=== PATIENT | female | born 1955 | race Two or more races ===

== ENCOUNTER 2024-12-31 11:02 | Inpatient (IN) | payer MEDICARE, BC, SELFPAY ==
[2024-12-31 11:03] VITALS: BMI 38.7
[2024-12-31 11:35] VITALS: BP 147/93; PULSE 100; RESP 18; TEMP 36.9; O2SAT 97
--- NOTE | 2024-12-31 11:40 | PD.EDRME ---
Rapid Medical Screening Exam RME Arrival date/time: 12/31/24 11:02 69-year-old female with a history of hypertension presents to the emergency room with a chief complaint of weakness, black tarry stools x 4 days I have greeted and performed a focused initial assessment of this patient. A comprehensive ED assessment and evaluation of the patient, analysis of all test results, and completion of the medical decision making process will be conducted by additional ED providers. Chief Complaint: GI Bleed Time Seen by Provider: 12/31/24 11:28 Vital signs: Vital Signs Temperature 98.5 F 12/31/24 11:35 Pulse Rate 100 12/31/24 11:35 Respiratory Rate 18 12/31/24 11:35 Blood Pressure 147/93 H 12/31/24 11:35 Pulse Oximetry (%) 97 12/31/24 11:35 Oxygen Delivery Method Room Air 12/31/24 11:35 Vital signs reviewed by provider: Yes
[2024-12-31 12:23] LABS: Basophils # (Auto) 0.0 Thou/mm3 (0.0-0.2); Basophils % (Auto) 1 % (0-2.5); Eosinophils # (Auto) 0.1 Thou/mm3 (0.0-0.5); Eosinophils % (Auto) 2 % (0-10); Hematocrit 31.2 % (36.0-46.0); Hemoglobin 10.8 g/dL (12.0-16.0); Immature Granulocytes Auto 0.10 Thou/mm3 (0.00-0.00); Lymphocytes # (Auto) 1.2 Thou/mm3 (1.0-4.8); Lymphocytes % (Auto) 24 % (10-50); Mean Corpuscular HGB Conc 34.6 g/dl (31.0-37.0); Mean Corpuscular Hemoglobin 31.0 pg (25.0-35.0); Mean Corpuscular Volume 90 fL (80-100); Monocytes # (Auto) 0.4 Thou/mm3 (0.0-0.8); Monocytes % (Auto) 8 % (0-12); Neutrophils # (Auto) 3.3 Thou/mm3 (1.8-7.7); Neutrophils % (Auto) 64 % (37-80); Nucleated Red Blood Cell # 0.02 Thou/mm3 (0.00-0.00); Nucleated Red Blood Cell % 0 /100 WBC (0); Platelet Count 228 Thou/mm3 (140-440); RDW Standard Deviation 39.7 fL (36.4-46.3); Red Blood Count 3.48 Miln/mm3 (4.00-5.20); White Blood Count 5.2 Thou/mm3 (3.6-11.0)
[2024-12-31 12:32] LABS: Alanine Aminotransferase 36 U/L (10-49); Albumin, Serum 4.9 gm/dL (3.4-4.8); Albumin/Globulin Ratio 2.1 (1.2-2.2); Alkaline Phosphatase 72 U/L (46-116); Anion Gap 9 (7-16); Aspartate Amino Transferase 45 U/L (0-34); BUN/Creatinine Ratio 9 Ratio (12-20); Bilirubin,Total 0.6 mg/dL (0.3-1.2); Blood Urea Nitrogen 7 mg/dL (9-23); Calcium 9.9 mg/dL (8.3-10.6); Calcium (Corrected) 9.9 mg/dL (8.5-10.1); Carbon Dioxide 26.6 mMol/L (20.0-31.0); Chloride 104 mMol/L (98-107); Creatinine (Component) 0.8 mg/dL (0.6-1.3); Estimated Creatinine Clearance 68.1 mL/min (>60); Globulin 2.3 gm/dL (2.3-3.5); Glucose 107 mg/dL (74-106); Osmolality,Calculated 277 (275-295); Potassium 4.9 mMol/L (3.4-5.1); Sodium 140 mMol/L (136-145); Total Protein 7.2 gm/dL (5.7-8.2); eGFR > 60 See Note
[2024-12-31 13:02] LABS: INR 1.0 (0.9-1.3); Partial Thromboplastin Time 26.1 Seconds (22.0-36.0); Prothrombin Time 10.6 Seconds (9.0-12.2)
--- NOTE | 2024-12-31 13:37 | PD.EDGIBLD ---
ED GI Bleed RME/HPI General Chief complaint: GI Bleed Stated complaint: BLACK STOOL X6DAYS Time Seen by Provider: 12/31/24 11:28 Arrival date/time: 12/31/24 11:02 RME / HPI RME / HPI Narrative: 12/31/24 11:02 69-year-old female with a history of hypertension presents to the emergency room with a chief complaint of weakness, black tarry stools x 4 days I have greeted and performed a focused initial assessment of this patient. A comprehensive ED assessment and evaluation of the patient, analysis of all test results, and completion of the medical decision making process will be conducted by additional ED providers. DR. JEAN MAIN ED EVALUATION 69 year old female with history of hypertension presents to the ED for evaluation of black stool x 6 days. States prior to onset of black stool, she had abdominal pain and body aches. States she took Mylanta and Tylenol and the following day noted the black stool. Now accompanied by feeling slightly globally weak. Denies any bright red or chintan blood. Denies taking any blood thinners, iron supplements, or Pepto Bismol. Denies fever, chills, sweating. Denies chest pain, cough, shortness of breath. Denies nausea, vomiting, diarrhea, constipation. Denies dysuria, urinary frequency and urgency. Related Data Home Medications ?Medication ?Instructions ?Recorded ?Confirmed hydrochlorothiazide 12.5 mg tablet 12.5 mg PO QDAY 05/12/20 05/12/20 lisinopril 20 mg tablet 20 mg PO QDAY 05/12/20 05/12/20 Previous Rx's ?Medication ?Instructions ?Recorded acetaminophen 500 mg tablet 1,000 mg (2 x 500 mg) PO QID PRN 08/01/22 (Tylenol Extra Strength) fever #30 tabs cetirizine 5 mg-pseudoephedrine ER 1 tab PO BID #10 tabs 08/01/22 120 mg tablet,extended release,12hr (Zyrtec-D) Allergies Allergy/AdvReac Type Severity Reaction Status Date / Time No Known Allergies Allergy Verified 12/31/24 11:04 Review of Systems Review of Systems Systems Reviewed: All systems reviewed, normal except as documented Past Medical History Past Medical History CARDIAC: Negative Congestive Heart Failure RESPIRATORY: Negative Chronic Obstructive Pulmonary Disease (COPD) GENITOURINARY: Negative Renal Disease ENDOCRINE: Negative Diabetes Mellitus Type 1 or Diabetes Mellitus Type 2 Surgical History SURGICAL: Positive Abdominal Surgery and Hysterectomy Social History SMOKING STATUS: Never smoker ED Exam Narrative Physical exam: GENERAL APPEARANCE: alert and oriented x 4, well-developed, well-nourished, no acute distress HEENT: Normocephalic, atraumatic; pupils equal, round, reactive to light; EOMI; mucous membranes pink, moist; oropharynx clear NECK: Supple LUNGS: CTABL; no wheezes, no rales, no rhonchi HEART: Regular rate, regular rhythm; normal S1, S2; no murmurs ABDOMEN: non distended; normal BS; soft, no tenderness, no guarding, no rebound; no masses, no organomegaly, no hernia RECTAL: Exam performed in presence of female tailor helper. Stool is black and guaiac strongly positive. BACK: no CVA tenderness EXTREMITIES: atraumatic; no edema NEUROLOGIC: awake; alert and oriented x4; cranial nerves II-XII grossly intact; no focal sensory or motor deficits PSYCHIATRIC: appropriate mood and affect SKIN: warm, dry, normal color; no rashes Course Quality Measures none Orders Category Date Time Status Occult Blood,Stool (Nursing) NOW Care 12/31/24 13:11 Active CBC Stat Lab 12/31/24 12:03 Completed CMP [Comprehensive Metabolic Panel] Stat Lab 12/31/24 12:03 Completed PT [Prothrombin Time with INR] Stat Lab 12/31/24 12:03 Completed PTT [Partial Thromboplastin Time] Stat Lab 12/31/24 12:03 Completed Type and Screen Stat Lab 12/31/24 12:03 Completed Pantoprazole Inj [Protonix Inj] Med 12/31/24 15:30 Pending 40 mg IVP X1 ONE Pantoprazole/Ns 80Mg IV Premix [Protonix/NS 80mg IV Med 12/31/24 15:21 Discontinued Premix] 80 mg in 100 ml IV X1 Vital Signs Vital signs: Vital Signs Temperature 98.5 F 12/31/24 11:35 Pulse Rate 100 12/31/24 11:35 Respiratory Rate 18 12/31/24 11:35 Blood Pressure 147/93 H 12/31/24 11:35 Pulse Oximetry (%) 97 12/31/24 11:35 Oxygen Delivery Method Room Air 12/31/24 11:35 Pulse ox is 97% on room air which is adequate. GI Bleed MDM Narrative MDM Narrative:: IJazlyn am scribing for and in the presence of Dr. Jean. Patient data External records reviewed:: [facility] previous records Clinical information provided by:: patient Social determinants that could affect healthcare access:: none Patient has the following chronic illnesses:: Hypertension How is presenting disease/condition affected by chronic disease/condition?: uneffected by Evaluation data The following diagnostics were reviewed and interpreted by me:: lab results Lab and/or radiology exams considered but not ordered:: None Interpretation Summary: H/H within normal limits, no anemia. Medications / Prescriptions Medications or Prescriptions considered but not ordered:: None Medication administrations:: Medication Administration History Pantoprazole Sodium (Pantoprazole Inj 40 Mg Vial) 40 mg IVP X1 ONE Stop: 12/31/24 15:31 Discontinued Medications Pantoprazole Sodium (Protonix/Ns 80mg Iv Premix) 80 mg in 100 mls @ 400 mls/hr IV X1 ONE Stop: 12/31/24 15:35 See above Consultations Consultation(s) initiated? (list below): Yes Consultation #1 (Physician, Specialty, Details): I spoke with GI Dr. Bermudez. Discussed patients PMHx, HPI, ED course, exam findings, labs results. He agrees to consult. Time: 15:16 Consultation #2 (Physician, Specialty, Details): I spoke with hospitalist team A for admission. Diagnosis GI bleed differential diagnosis: gastritis, Upper gastrointestinal hemorrhage and melena Most likely diagnosis given after review of the tests above:: Melena symptomatic anemia Admission Indicated Admission indicated?: indicated Admission Request Was there a request for admission?: Yes Admission Attestation Admission request attestation: Discussed case with [] from Hospitalist service regarding admission. Discussed patients ED course, exam findings, labs, and radiology results. The Hospitalist [agrees,declines] to accept the patient for admission. Disposition Plan Disposition Plan: Admit Discharge Plan Plan Patient Disposition: Admit Acute Care w/in Hospital Prescriptions/Referrals Prescriptions/Med Rec: No Action lisinopril 20 mg Tablet 20 mg PO QDAY hydrochlorothiazide 12.5 mg Tablet 12.5 mg PO QDAY acetaminophen [Tylenol Extra Strength] 500 mg tablet 1,000 mg PO QID PRN (Reason: fever) Qty: 30 0RF cetirizine-pseudoephedrine [Zyrtec-D] 5-120 mg tablet extended release 12 hr 1 tab PO BID Qty: 10 0RF Referrals: Devante Fernandes MD [Primary Care Provider, Family Practice] - In 1 week Problem List Clinical Impression: Symptomatic anemia, Melena Patient/Caregiver Discharge Instructions Print Language: Fijian Stand Alone Forms: Loren Award Info., Patient Portal Info Letter
[2024-12-31 15:42] VITALS: BP 164/98; PULSE 105; RESP 18; TEMP 36.6; O2SAT 98
[2024-12-31] MEDS: PANTOPRAZOLE/NS 80MG IV PREMIX 80 MG/100 ML BAG 400 MG IV (16:22)
[2024-12-31] MEDS: PANTOPRAZOLE/NS 80MG IV PREMIX 80 MG/100 ML BAG 10 MG IV (16:49)
--- NOTE | 2024-12-31 17:21 | PD.RESHP ---
Documentation for date of: 12/31/24 Patient is a 69-year-old female with a past medical history of hypertension on lisinopril 20 mg daily nonadherent who presented to the emergency room with a chief complaint of 4 to 6 days of tarry black stool and overall generalized weakness. Patient stated that 1-2 bowels per day appearing black, and denied diarrhea. Patient denied past medical history of ulcers or alcohol use disorder. Patient denied NSAID. Patient denied previous colonoscopy. Patient denied any hematochezia in stool or on toilet paper. Denied hemoptysis. FOBT positive Patient admitted for acute blood loss anemia likely secondary to upper GI bleed. Patient was scheduled for EGD on 01/01/2025. Protonix BID. [place] panel ordered. Resume home medication of Lisinopril. Clear liquid diet. NPO on 01/01/2025 after 9:00 AM w/ small sips of water for medication only. Senior Resident Attestation: I have discussed the case with supervising physician and international bank manager physician involved in the care of patient. I personally saw and examined patient and discussed the assessment and plan with the entire medical team, including attending. I agree with assessment and plan as documented below. - The patient's plan was discussed with attending Dr. Albertina Carvajal MD PGY2 Internal Medicine HPI History of Present Illness History of present illness: Patient is a 69 yo female w/ PMH of HTN who presented to the [facility] ED on 12/31/24 w/ a chief complaint of melena and weakness ongoing for 6 days. States prior to onset of black stool, she had abdominal pain and body aches. States she took Mylanta and Tylenol and the following day noted the black stool. Now accompanied by feeling slightly globally weak. Denies any bright red or chintan blood. Denies taking any blood thinners, iron supplements, or Pepto Bismol. Denies fever, chills, sweating. Denies chest pain, cough, shortness of breath. Denies nausea, vomiting, diarrhea, constipation. Denies dysuria, urinary frequency and urgency. PMH: HTN (on PO lisinopril 20 mg qD but has not taken it since 6 days ago) PSH: hysterectomy 27 years ago for uterine fibroids, appendectomy 18 years ago Medications: PO lisinopril 20 mg qD Allergies: NKDA FH: mom 1.5 years ago @ 83 yo from renal cell carcinoma and had PMH of T2DM, dad many years ago and had HTN, brother from liver cancer @ 55 yo SH: lives in [place] in a house w/ and 47 yo son, social drinker, no history of smoking or recreational drug use In the ED, vitals showed: BP 147/93 HR 100 RR 18 Temp 98.5 SpO2 97% on room air CBC showed Hgb 10.8 (MCV 90, RDW 39.7). Coagulation panel was WNL. CMP was WNL. Stool guaiac (+). Imaging: None In the ED, patient was given IV Protonix and started on IV Protonix drip. Patient was admitted for the work-up and management of acute blood loss anemia 2/2 GI bleed and melena. GI (Dr. Bermudez) was consulted and is closely following the case. Review of Systems Review of Systems Systems Reviewed: All systems reviewed, normal except as documented Exam Vital Signs Temp Pulse Resp BP Pulse Ox O2 Del Method 98 F 105 H 18 164/98 H 98 Room Air 12/31/24 15:42 12/31/24 15:42 12/31/24 15:42 12/31/24 15:42 12/31/24 15:42 12/31/24 15:42 Narrative Exam General: A/O x3, no acute distress. Skin: Warm, dry, intact, no obvious rash. Head: Normocephalic, atraumatic. Eyes: PERRL, EOMI. Anicteric, vision grossly intact. Ears: No ear pain, no ear discharge, Hearing grossly intact. Nose: No nasal discharge. Mouth/Throat: Oral mucosa moist. No obvious lesions in oropharynx. Neck: Neck supple, non-tender, no cervical lymphadenopathy. Cardiovascular: Tachycardic rate and rhythm, no murmur, no JVD or carotid bruits. +S1/S2. Respiratory: Bilateral lungs are clear to auscultation, respirations unlabored, no crackles, no wheezing. No accessory muscle use. Gastrointestinal: Soft, nontender, non-distended, no palpable masses. No guarding or rebound tenderness. Peristalsis present. Extremities: Symmetrical, no significant deformities. No edema, no cyanosis, no clubbing. 2+ radial pulse bilaterally, 2+ posterior tibial pulse bilaterally. Neuro: No focal deficits observed. Conversant, moving all extremities. No overt cerebellar signs/incoordination. Psychiatric: Cooperative, appropriate affect. Results: Labs 01/02/25 05:08 01/02/25 05:08 Labs: Short CBC 12/31/24 Range/Units 12:03 WBC 5.2 (3.6-11.0) Thou/mm3 Hgb 10.8 L (12.0-16.0) g/dL Hct 31.2 L (36.0-46.0) % Plt Count 228 (140-440) Thou/mm3 BMP 12/31/24 12:03 Sodium 140 Potassium 4.9 Chloride 104 Carbon Dioxide 26.6 BUN 7 L Creatinine 0.8 Glucose 107 H Calcium 9.9 Liver Function 12/31/24 Range/Units 12:03 Total Bilirubin 0.6 (0.3-1.2) mg/dL AST 45 H (0-34) U/L ALT 36 (10-49) U/L Alkaline Phosphatase 72 (46-116) U/L Albumin 4.9 H (3.4-4.8) gm/dL Quality Measures Quality Measures none Advance care planning discussed with:: patient Medications Home Medications and Allergies Allergies Allergy/AdvReac Type Severity Reaction Status Date / Time No Known Allergies Allergy Verified 01/01/25 15:51 Visit Medications Acetaminophen (Acetaminophen 325 Mg Tablet) 650 mg PO Q6H PRN PRN Reason: PAIN SCALE 1-3 (mild Stop: 01/30/25 17:00 Labetalol HCl (Labetalol Inj 5 Mg/Ml Vial 20 Ml) 10 mg IVP Q4HR PRN PRN Reason: SBP>180 or DBP>120 Stop: 01/30/25 17:11 Lisinopril (Lisinopril 20 Mg Tablet) 20 mg PO QDAY DU Stop: 01/30/25 17:14 Ondansetron HCl (Ondansetron Inj 2 Mg/Ml Inj 2 Ml) 4 mg IVP Q6H PRN; Protocol PRN Reason: NAUSEA OR VOMITING Stop: 01/30/25 17:00 Pantoprazole Sodium (Pantoprazole Inj 40 Mg Vial) 40 mg IVP Q12HR DU Stop: 01/30/25 20:59 Sennosides (Senna Tablet) 1 tab PO QDAY PRN; Protocol PRN Reason: constipation Stop: 01/30/25 17:00 Discontinued Medications Pantoprazole Sodium (Protonix/Ns 80mg Iv Premix) 80 mg in 100 mls @ 400 mls/hr IV X1 ONE Stop: 12/31/24 16:29 Last Infusion: 12/31/24 16:37 Dose: Infused Pantoprazole Sodium (Protonix/Ns 80mg Iv Premix) 80 mg in 100 mls @ 10 mls/hr IV Q10H DU Stop: 01/03/25 14:08 Last Admin: 12/31/24 16:49 Dose: 10 mls/hr Assessment & Plan Plan Patient is a 69 yo female w/ PMH of HTN who presented to the [facility] ED on 12/31/24 w/ a chief complaint of melena and weakness ongoing for 6 days. Patient was admitted for the work-up and management of acute blood loss anemia 2/2 GI bleed and melena. #Acute blood loss normocytic anemia 2/2 #GI bleed #Melena Admission Hgb 10.8 (MCV 90, RDW 39.7) in the setting of 6 days of black stool (but no chintan hematemesis or hematochezia) and (+) stool guaiac Reports taking Mylanta and Tylenol the day prior to onset of melena Denied taking any blood thinners, iron supplements, or Pepto-Bismol Had a Cologuard done 5 years ago that was negative Dx: -Pending likely endoscopic studies by GI -Ordered iron panel and ferritin, results pending Rx: -IV Protonix 40 mg q12HR -NPO status after 9 AM tomorrow morning -Type and Screen ordered -Transfuse if Hgb<7 #Hypertension Admission BP 147/93, on home lisinopril which she has not taken in 6 days Dx: -Ordered hemoglobin A1c, results pending -Ordered lipid panel, results pending -Ordered TSH, results pending Rx: -Restarted home PO lisinopril 20 mg qD -Started IV labetalol q4HR prn for SBP>180 or DBP>120 Hospital Management: Disposition: Patient was admitted for the work-up and management of acute blood loss anemia 2/2 GI bleed and melena. Diet: NPO (pending endoscopy) GI Prophylaxis: IV Protonix 40 mg BID Bowel Prophylaxis: Senna prn DVT Prophylaxis: SCDs CODE STATUS: Full Code I have examined the patient and conferred with my attending, Dr. Eng, and my senior resident, Dr. Carvajal, regarding them. Han Garcia DO PGY-1 Internal Medicine Attending Provider Attestation/Addendum I have examined the patient, reviewed labs and imaging findings, discussed the case with the resident(s), and reviewed entered orders. I agree with the plan of care as outlined in this note, with these additional summaries/recommendations: After examination of the patient and review of the clinical data, I feel that this patient needs admission to the hospital for further treatment and evaluation. Patient is a 69-year-old female with a medical history of primary hypertension and dyslipidemia who presented to [facility] on 12/31[facility]24 with chief complaint of blood in her stools. Patient will be admitted for acute blood loss anemia secondary to GI bleed. Hold all chemical anticoagulation. Start IV Protonix. Consult gastroenterology, recommendations appreciated. Clear liquid diet. Transfuse for hemoglobin less than 7. Resume home antihypertensives. Patient updated on the plan and in agreement. All questions answered to satisfaction. Please see residents note for additional details of management. Dr. Albertina MD
[2024-12-31 17:22] VITALS: BP 159/95; PULSE 83
--- NOTE | 2024-12-31 17:47 | PD.IMCONS ---
HPI Data of Consult Primary Care Provider: Devante Fernandes MD Consult Narrative Reason for consult: melena. Posthemorrhagic anemia History of present illness: 69 years of female who presented the emergency room not feeling well was found to have melanotic stool for the last 6 days Last hemoglobin was in July 2020 which showed hemoglobin hematocrit of 14.4 and 41.3 Today hemoglobin hematocrit 10.8 and 31.2 with a pro time INR 1.0 and a platelet count of 228,000 Patient is not taking any NSAIDs except Tylenol cc:: cc: Review of Systems Review of Systems Systems Reviewed: All systems reviewed, normal except as documented Meds Home Medications and Allergies Allergies Allergy/AdvReac Type Severity Reaction Status Date / Time No Known Allergies Allergy Verified 12/31/24 11:04 Exam Vital Signs Temp Pulse Resp BP Pulse Ox O2 Del Method 98 F 83 18 159/95 H 98 Room Air 12/31/24 15:42 12/31/24 17:22 12/31/24 15:42 12/31/24 17:22 12/31/24 15:42 12/31/24 15:42 Constitutional Comments: Alert oriented Routine Respiratory Exam Comments: Normal to auscultation Routine Abdominal Exam Comments: Soft nontender Results Labs 12/31/24 12:03 12/31/24 12:03 Labs: Short CBC 12/31/24 Range/Units 12:03 WBC 5.2 (3.6-11.0) Thou/mm3 Hgb 10.8 L (12.0-16.0) g/dL Hct 31.2 L (36.0-46.0) % Plt Count 228 (140-440) Thou/mm3 BMP 12/31/24 12:03 Sodium 140 Potassium 4.9 Chloride 104 Carbon Dioxide 26.6 BUN 7 L Creatinine 0.8 Glucose 107 H Calcium 9.9 Liver Function 12/31/24 Range/Units 12:03 Total Bilirubin 0.6 (0.3-1.2) mg/dL AST 45 H (0-34) U/L ALT 36 (10-49) U/L Alkaline Phosphatase 72 (46-116) U/L Albumin 4.9 H (3.4-4.8) gm/dL Assessment and Plan Additional Assessment & Plan Additional Plan: # Melena #acute posthemorrhagic anemia plan clear liquid diet N.p.o. tomorrow at 9 AM except p.o. meds Consent obtained for fiberoptic esophagogastroduodenoscopy with possible biopsy possible therapeutic intervention under intravenous moderate sedation IV Protonix Serial CBC If the EGD is negative we will consider doing a Fiberoptic colonoscopy prior to discharge Thank you once again for the opportunity to participate in the care of this patient
--- NOTE | 2024-12-31 18:45 | PC.NURSE ---
Attempted to call resident regarding cancelled protonix drip. No answer.
[2024-12-31 19:00] VITALS: BP 143/81; PULSE 77; RESP 18; TEMP 37.1; O2SAT 98
[2024-12-31 19:45] VITALS: PULSE 60; RESP 20; RESP 99
[2024-12-31 19:46] VITALS: BMI 39.2
[2024-12-31 20:00] VITALS: BP 165/91; PULSE 88; RESP 16; TEMP 37.2; O2SAT 97
[2025-01-01] VITALS (18 sets, daily range): BP systolic 114–165; BP diastolic 67–101; PULSE 73–101; RESP 11–97; TEMP 36.1–36.9; O2SAT 94–100
[2025-01-01 05:40] LABS: Basophils # (Auto) 0.0 Thou/mm3 (0.0-0.2); Basophils % (Auto) 1 % (0-2.5); Eosinophils # (Auto) 0.1 Thou/mm3 (0.0-0.5); Eosinophils % (Auto) 2 % (0-10); Hematocrit 28.4 % (36.0-46.0); Hemoglobin 9.7 g/dL (12.0-16.0); Immature Granulocytes Auto 0.06 Thou/mm3 (0.00-0.00); Lymphocytes # (Auto) 1.5 Thou/mm3 (1.0-4.8); Lymphocytes % (Auto) 27 % (10-50); Mean Corpuscular HGB Conc 34.2 g/dl (31.0-37.0); Mean Corpuscular Hemoglobin 30.9 pg (25.0-35.0); Mean Corpuscular Volume 90 fL (80-100); Monocytes # (Auto) 0.5 Thou/mm3 (0.0-0.8); Monocytes % (Auto) 10 % (0-12); Neutrophils # (Auto) 3.3 Thou/mm3 (1.8-7.7); Neutrophils % (Auto) 60 % (37-80); Nucleated Red Blood Cell # 0.00 Thou/mm3 (0.00-0.00); Nucleated Red Blood Cell % 0 /100 WBC (0); Platelet Count 228 Thou/mm3 (140-440); RDW Standard Deviation 40.8 fL (36.4-46.3); Red Blood Count 3.14 Miln/mm3 (4.00-5.20); White Blood Count 5.4 Thou/mm3 (3.6-11.0)
[2025-01-01 06:08] LABS: Ferritin 241 ng/mL (7.3-270.7); Iron 63 mcg/dL (50-170); Percent Iron Saturation 21 % (20-55); Total Iron Binding Capacity 298 mcg/dL (250-425); Unsaturated Iron Binding 235 (225-295)
[2025-01-01 06:24] LABS: Anion Gap 12 (7-16); Carbon Dioxide 26.4 mMol/L (20.0-31.0); Chloride 104 mMol/L (98-107); Potassium 3.9 mMol/L (3.4-5.1); Sodium 142 mMol/L (136-145)
[2025-01-01 06:25] LABS: Alanine Aminotransferase 31 U/L (10-49); Albumin, Serum 4.1 gm/dL (3.4-4.8); Albumin/Globulin Ratio 2.3 (1.2-2.2); Alkaline Phosphatase 63 U/L (46-116); Aspartate Amino Transferase 31 U/L (0-34); BUN/Creatinine Ratio 13 Ratio (12-20); Bilirubin,Total 0.7 mg/dL (0.3-1.2); Blood Urea Nitrogen 9 mg/dL (9-23); Calcium 9.2 mg/dL (8.3-10.6); Calcium (Corrected) 9.2 mg/dL (8.5-10.1); Cardiac Risk Estimate 3.9 RATIO (3.7-5.6); Cholesterol 156 mg/dL (132-200); Creatinine (Component) 0.7 mg/dL (0.6-1.3); Estimated Creatinine Clearance 78.5 mL/min (>60); Globulin 1.8 gm/dL (2.3-3.5); Glucose 99 mg/dL (74-106); HDL Cholesterol 40 mg/dL (40-60); LDL Cholesterol,Calculated 85 mg/dL (0-130); Magnesium 2.2 mg/dL (1.6-2.6); Osmolality,Calculated 281 (275-295); Phosphorous 4.5 mg/dL (2.4-5.1); Thyroid Stimulating Hormone 2.34 uIU/mL (0.55-4.78); Total Protein 5.9 gm/dL (5.7-8.2); Triglycerides 153 mg/dL (30-150); eGFR > 60 See Note
[2025-01-01 06:26] LABS: Glucose Estimated Average 97 mg/dL (80-131); Hemoglobin A1C 5.0 % Hgb (4.8-6.0)
--- NOTE | 2025-01-01 08:08 | CHAP ---
Visited with patient giving encouragement, comfort and prayer prior to the procedure.
--- NOTE | 2025-01-01 12:08 | PC.SS ---
Pari Schaeffer is a 69-year-old female admitted to Med Surg for GI Bleed. SS conducted bedside contact with the patient to complete initial assessment and to discuss discharge planning. Role and reason explained. Patient confirmed demographic information. Patient identifies Peter Schaeffer [phone] as her surrogate decision maker. Pt states she is able to complete all ADL?s independently. No need for any DME. Pts PCP is Dr. Fernandes (last visit was over 1 year ago). Pharmacy of choice is [facility]. Discharge options discussed and the pt wishes to return home.? Family will provide transportation upon DC. No further intervention required at this time, hospice social worker would be available to address any further concerns. DC Plan: Home Contact: Address: Confirmed on face sheet PCP: Devante Fernandes
--- NOTE | 2025-01-01 14:23 | ESPR_ITS ---
<Statement entered by Cl Orourke MD - 01/02/25 05:44> I saw and examined patient personally and supervised PGY 1 resident, Dr. Garcia with formulating a management plan. I agree with the documentation with the exceptions as listed below. Patient was admitted for GI bleed for investigation. EGD showed esophagitis, gastritis and nonbleeding duodenal ulcer. Hemoglobin today currently stable. If no further drastic decrease in hemoglobin anticipate discharge within next 24 hours on PPI and outpatient GI follow-up for colonoscopy. Plan of care discussed with Attending Dr. Kristen Orourke MD PGY 2 Disclaimer: This note was dictated by speech recognition. Minor errors in fruit raiser may be present due to voice recognition software. Documentation for date of: 01/01/25 Subjective Subjective Interval history: No overnight events. Patient was examined at bedside; they appear A&Ox4 and in NAD. Labs today significant for Hgb 10.8 -> 9.7. Iron panel was WNL. Physical exam was benign and unremarkable. Patient underwent upper endoscopy which showed esophagitis, gastritis characterized by erosions, and a non-bleeding superficial duodenal ulcer with a clean ulcer base (Silverio Class III) in the duodenal bulb. Per GI, if patient's hemoglobin is stable tomorrow, she can be discharged with plans for her to follow up for outpatient colonoscopy. Exam Vital Signs Temp Pulse Resp BP Pulse Ox O2 Del Method O2 Flow Rate 96.9 F 85 13 130/83 100 Room Air 3 01/01/25 12:00 01/01/25 14:15 01/01/25 14:15 01/01/25 14:15 01/01/25 14:15 01/01/25 12:00 01/01/25 14:15 Narrative Exam General: A/O x3, no acute distress. Skin: Warm, dry, intact, no obvious rash. Head: Normocephalic, atraumatic. Eyes: PERRL, EOMI. Anicteric, vision grossly intact. Ears: No ear pain, no ear discharge, Hearing grossly intact. Nose: No nasal discharge. Mouth/Throat: Oral mucosa moist. No obvious lesions in oropharynx. Neck: Neck supple, non-tender, no cervical lymphadenopathy. Cardiovascular: Tachycardic rate and rhythm, no murmur, no JVD or carotid bruits. +S1/S2. Respiratory: Bilateral lungs are clear to auscultation, respirations unlabored, no crackles, no wheezing. No accessory muscle use. Gastrointestinal: Soft, nontender, non-distended, no palpable masses. No guarding or rebound tenderness. Peristalsis present. Extremities: Symmetrical, no significant deformities. No edema, no cyanosis, no clubbing. 2+ radial pulse bilaterally, 2+ posterior tibial pulse bilaterally. Neuro: No focal deficits observed. Conversant, moving all extremities. No overt cerebellar signs/incoordination. Psychiatric: Cooperative, appropriate affect. Objective Labs 01/01/25 05:23 01/01/25 05:23 Labs: Laboratory Results - last 24 hr 01/01/25 05:23 WBC 5.4 RBC 3.14 L Hgb 9.7 L Hct 28.4 L MCV 90 MCH 30.9 MCHC 34.2 RDW Std Deviation 40.8 Plt Count 228 Neut % (Auto) 60 Lymph % (Auto) 27 Josephine % (Auto) 10 Eos % (Auto) 2 Baso % (Auto) 1 Neut # (Auto) 3.3 Lymph # (Auto) 1.5 Josephine # (Auto) 0.5 Eos # (Auto) 0.1 Baso # (Auto) 0.0 Immature Gran # (Auto) 0.06 H Absolute Nucleated RBC 0.00 Immature Gran % 1 H Nucleated RBC % 0 Sodium 142 Potassium 3.9 D Chloride 104 Carbon Dioxide 26.4 Anion Gap 12 BUN 9 Creatinine 0.7 Estim Creat Clear Calc 78.5 eGFR > 60 BUN/Creatinine Ratio [address] Glu mg/dL 97 Hemoglobin A1c 5.0 Calculated Osmolality 281 Calcium 9.2 Corrected Calcium 9.2 Phosphorus 4.5 Magnesium 2.2 Iron 63 TIBC 298 Iron Saturation 21 Unsat Iron Binding 235 Ferritin 241 Total Bilirubin 0.7 AST 31 ALT 31 Alkaline Phosphatase 63 Total Protein 5.9 Albumin 4.1 D Globulin 1.8 L Albumin/Globulin Ratio 2.3 H Triglycerides 153 H Cholesterol 156 LDL Cholesterol, Calc 85 HDL Cholesterol 40 Cholesterol/HDL Ratio 3.9 TSH 2.34 Blood Type O Positive Antibody Screen NEGATIVE Blood Bank Wristband ID Yes Quality Measures Quality Measures none Advance care planning discussed with:: patient Assessment & Plan Assessment Current Active Medications: Generic Name Dose Route Start Last Admin Trade Name Freq PRN Reason Stop Dose Admin Acetaminophen 650 mg 12/31/24 17:01 Acetaminophen 325 Mg Tablet PO 01/30/25 17:00 Q6H PRN PAIN SCALE 1-3 (mild Diphenhydramine HCl 25 mg 01/01/25 13:35 Diphenhydramine Inj 50 Mg/Ml Vial IVP 01/01/25 15:56 [id number] PRN MODERATE SEDATION Fentanyl Citrate 50 mcg 01/01/25 13:35 Fentanyl Cit Inj 50 Mcg/Ml Amp 2ml IVP 01/01/25 15:35 Q2M PRN MODERATE SEDATION Labetalol HCl 10 mg 12/31/24 17:12 Labetalol Inj 5 Mg/Ml Vial 20 Ml IVP 01/30/25 17:11 Q4HR PRN SBP>180 or DBP>120 Lisinopril 20 mg 12/31/24 17:15 01/01/25 09:12 Lisinopril 20 Mg Tablet PO 01/30/25 17:14 20 mg QDAY DU Administration Midazolam HCl 2 mg 01/01/25 13:35 Midazolam Inj 1 Mg/Ml Vial 2 Ml IVP 01/01/25 15:35 Q2M PRN Moderate Sedation Ondansetron HCl 4 mg 12/31/24 17:01 Ondansetron Inj 2 Mg/Ml Inj 2 Ml IVP 01/30/25 17:00 Q6H PRN NAUSEA OR VOMITING Protocol Pantoprazole Sodium 40 mg 12/31/24 21:00 01/01/25 09:12 Pantoprazole Inj 40 Mg Vial IVP 01/30/25 20:59 40 mg Q12HR DU Administration Sennosides 1 tab 12/31/24 17:01 Senna Tablet PO 01/30/25 17:00 QDAY PRN constipation Protocol Plan Patient is a 69 yo female w/ PMH of HTN who presented to the [facility] ED on 12/31/24 w/ a chief complaint of melena and weakness ongoing for 6 days. Patient was admitted for the work-up and management of acute blood loss anemia 2/2 GI bleed and melena. #Acute blood loss normocytic anemia 2/2 #GI bleed #Melena Admission Hgb 10.8 (MCV 90, RDW 39.7) in the setting of 6 days of black stool (but no chintan hematemesis or hematochezia) and (+) stool guaiac Reports taking Mylanta and Tylenol the day prior to onset of melena Denied taking any blood thinners, iron supplements, or Pepto-Bismol Had a Cologuard done 5 years ago that was negative Dx: -01/01 upper endoscopy showed esophagitis, gastritis characterized by erosions, and a non-bleeding superficial duodenal ulcer with a clean ulcer base (Silverio Class III) in the duodenal bulb -Ordered iron panel and ferritin, results WNL (not suggestive of DEIDRE or ACD) Rx: -Per GI, if patient's hemoglobin is stable tomorrow, she can be discharged with plans for her to follow up for outpatient colonoscopy. -IV Protonix 40 mg q12HR -Restarted Diet: PUD/GERD/[place] -Type and Screen completed -Transfuse if Hgb<7 #Hypertension Admission BP 147/93, on home lisinopril which she has not taken in 6 days Dx: -Ordered hemoglobin A1c, 5.0 -Ordered lipid panel, WNL (triglycerides slightly high at 153) -Ordered TSH, 2.34 Rx: -Continue home PO lisinopril 20 mg qD -Continue IV labetalol q4HR prn for SBP>180 or DBP>120 Hospital Management: Disposition: Patient was admitted for the work-up and management of acute blood loss anemia 2/2 GI bleed and melena. Diet: PUD/GERD/[place] GI Prophylaxis: IV Protonix 40 mg BID Bowel Prophylaxis: Senna prn DVT Prophylaxis: SCDs CODE STATUS: Full Code I have examined the patient and conferred with my attending, Dr. Peterson, and my senior resident, Dr. Orourke, regarding them. Hna Garcia DO PGY-1 Internal Medicine Attending Provider Attestation/Addendum I have discussed and was present for the essential components of the history, physical examination, diagnosis, and treatment plan with the resident. I agree with the patient's care as documented by the resident and amended herein by me. Jeff Peterson DO. Although this document has been carefully reviewed, there may still be some phonetic and other typographical errors. These errors are purely grammatical due to imperfections in the software program and should not be construed in any way to compromise the substance of the patient's medical care during this visit.
--- NOTE | 2025-01-01 14:40 | SUR.PHASEI ---
1430: Pt received in [facility] via [facility]. Report from Veronica SKY. Pt sleepy. Easily aroused with eye opening and responds appropriately to questions. Drifts back to sleep. Resp even, unlabored. VS stable. Denies pain.
--- NOTE | 2025-01-01 15:06 | PC.SS ---
Rounding: Pending SABRINA MCKEON plan home
--- NOTE | 2025-01-01 15:51 | SUR.PHASEI ---
1507: Pt fully awake, oriented x3. VS stable. Denies pain. Report to 3rd floor receiving nurse Mariana SKY. Pt transferred to 352 in stable condition.
[2025-01-02] VITALS: BP 106/62; PULSE 80; RESP 16; TEMP 37.1; O2SAT 96
[2025-01-02 04:00] VITALS: BP 111/70; PULSE 69; RESP 17; TEMP 36.2; O2SAT 97
[2025-01-02 06:00] LABS: Basophils # (Auto) 0.0 Thou/mm3 (0.0-0.2); Basophils % (Auto) 0 % (0-2.5); Eosinophils # (Auto) 0.1 Thou/mm3 (0.0-0.5); Eosinophils % (Auto) 2 % (0-10); Hematocrit 30.0 % (36.0-46.0); Hemoglobin 10.1 g/dL (12.0-16.0); Immature Granulocytes Auto 0.07 Thou/mm3 (0.00-0.00); Lymphocytes # (Auto) 1.8 Thou/mm3 (1.0-4.8); Lymphocytes % (Auto) 31 % (10-50); Mean Corpuscular HGB Conc 33.7 g/dl (31.0-37.0); Mean Corpuscular Hemoglobin 31.4 pg (25.0-35.0); Mean Corpuscular Volume 93 fL (80-100); Monocytes # (Auto) 0.6 Thou/mm3 (0.0-0.8); Monocytes % (Auto) 10 % (0-12); Neutrophils # (Auto) 3.2 Thou/mm3 (1.8-7.7); Neutrophils % (Auto) 55 % (37-80); Nucleated Red Blood Cell # 0.00 Thou/mm3 (0.00-0.00); Nucleated Red Blood Cell % 0 /100 WBC (0); Platelet Count 236 Thou/mm3 (140-440); RDW Standard Deviation 43.1 fL (36.4-46.3); Red Blood Count 3.22 Miln/mm3 (4.00-5.20); White Blood Count 5.7 Thou/mm3 (3.6-11.0)
[2025-01-02 06:12] LABS: Alanine Aminotransferase 32 U/L (10-49); Albumin, Serum 4.3 gm/dL (3.4-4.8); Albumin/Globulin Ratio 2.7 (1.2-2.2); Alkaline Phosphatase 64 U/L (46-116); Anion Gap 10 (7-16); Aspartate Amino Transferase 31 U/L (0-34); BUN/Creatinine Ratio 10 Ratio (12-20); Bilirubin,Total 0.6 mg/dL (0.3-1.2); Blood Urea Nitrogen 9 mg/dL (9-23); Calcium 9.4 mg/dL (8.3-10.6); Calcium (Corrected) 9.4 mg/dL (8.5-10.1); Carbon Dioxide 28.1 mMol/L (20.0-31.0); Chloride 105 mMol/L (98-107); Creatinine (Component) 0.9 mg/dL (0.6-1.3); Estimated Creatinine Clearance 61.1 mL/min (>60); Globulin 1.6 gm/dL (2.3-3.5); Glucose 92 mg/dL (74-106); Osmolality,Calculated 283 (275-295); Potassium 4.4 mMol/L (3.4-5.1); Sodium 143 mMol/L (136-145); Total Protein 5.9 gm/dL (5.7-8.2); eGFR > 60 See Note
[2025-01-02 07:51] VITALS: PULSE 88; RESP 18; RESP 97
[2025-01-02 07:52] VITALS: BP 132/83; PULSE 64; RESP 17; TEMP 36.2; O2SAT 97
--- NOTE | 2025-01-02 08:37 | CHAP ---
Patient was visited by a Spiritual Care Volunteer on 01/01/2025 between 0900 and 1130 and received comfort, encouragement and/or prayer.
[2025-01-02 08:45] VITALS: BP 132/83; PULSE 64
[2025-01-02 11:58] VITALS: BP 128/78; PULSE 70; RESP 17; TEMP 36.2; O2SAT 97
--- NOTE | 2025-01-02 14:54 | ESDS_ITS ---
<Statement entered by Cl Orourke MD - 01/02/25 16:12> I saw and examined patient personally and supervised PGY 1 resident, Dr. Garcia with formulating a management plan. I agree with the documentation with the exceptions as listed below. Patient presented with melena and was admitted for GI bleed for investigation. She underwent EGD which showed esophagitis and Silverio class III ulcer to the duodenal bulb. She was started on PPI and recommended to follow a bland diet and stop eating spicy foods. Gastroenterology, Dr. Bermudez recommended she follow-up with them outpatient for colonoscopy. All patient's labs are now returning to her baseline, currently clinically stable for discharge to home. Plan of care discussed with Attending Dr. Kristen Orourke MD PGY 2 Disclaimer: This note was dictated by speech recognition. Minor errors in director of strategic partnerships may be present due to voice recognition software. Planned Discharge Date 01/02/25 DS: Providers Provider Date of admission: 12/31/24 17:01 Primary care physician: Devante Fernandes MD Admitting Provider: Raymond Eng MD Attending Provider on Admission: Herrera Peterson DO Consults: 12/31/24 18:03 Consult to Gastroenterology Stat Comment: Consulting Provider: Darron Bermudez Attending Provider on DC: Jeff Peterson DO Discharging Provider: Han Garcia DO DS: Diagnosis Problem List Completed Was Problem List Reviewed/Reconciled?: Yes Hospital Course Hospital Course Hospital course: Summary: Patient is a 69 yo female w/ PMH of HTN who presented to the [facility] ED on 12/31/24 w/ a chief complaint of melena and weakness ongoing for 6 days. ER: In the ED, vitals showed: BP 147/93 HR 100 RR 18 Temp 98.5 SpO2 97% on room air CBC showed Hgb 10.8 (MCV 90, RDW 39.7). Coagulation panel was WNL. CMP was WNL. Stool guaiac (+). No imaging studies performed. In the ED, patient was given IV Protonix and started on IV Protonix drip. Patient was admitted for the work-up and management of acute blood loss anemia 2/2 GI bleed and melena. GI (Dr. Bermudez) was consulted and is closely following the case. Hospital: During patient's hospital course, she was treated with IV Protonix for the purposes of GI prophylaxis due to concern for acute blood loss anemia 2/2 upper GI bleed. She underwent upper endoscopy on 01/01 which showed esophagitis, gastritis characterized by erosions, and a non-bleeding superficial duodenal ulcer with a clean ulcer base (Silverio Class III) in the duodenal bulb. Iron panel came back WNL and was not suggestive of DEIDRE or ACD. In terms of patient's hypertension, she was restarted on her home PO lisinopril for the duration of her admission. Patient was deemed clinically stabilized by 01/02 and discharged home with plans for her to follow-up with outpatient colonoscopy. Patient is safe to discharge to home. Further discharge instructions below. - You have been started on a blood pressure pill. Take as below - Take your blood pressure everyday and write it down. Caryy this to your primary doctor - Take Pantoprazole daily. - Avoid taking NSAIDS including elleve,motrin and ibuprofen - Follow up with Gastroenterology, Dr. Bermudez in 2 weeks to arrange outpatient colonoscopy - Follow up with your primary care physician within 1 week of discharge. If you do not have a primary care physician, please follow up with the [facility] Residents clinic ([phone]) ? If you experience any new, worsening or persistent symptoms either call your primary doctor, or dial 911 or present to the emergency department. #Acute blood loss normocytic anemia 2/2 #GI bleed #Melena #Hypertension Status at Discharge Cognitive/Behavioral Status at Discharge: stable Functional Status at Discharge: independent ambulation Overall Status at Discharge: patient is back to baseline Patient's care plan was discussed with my attending, Dr. Peterson, and senior resident, Dr. Orourke. Han Garcia, DO Internal Medicine, PGY-1 Time Spent with Patient Time attestation: Total time spent providing and/or coordinating discharge services: Time spent: Greater than 30 minutes Exam Vital Signs Temp Pulse Resp BP Pulse Ox O2 Del Method O2 Flow Rate 97.2 F 70 17 128/78 97 Room Air 3 01/02/25 11:58 01/02/25 11:58 01/02/25 11:58 01/02/25 11:58 01/02/25 11:58 01/02/25 11:58 01/01/25 14:20 Narrative Exam General: A/O x3, no acute distress. Skin: Warm, dry, intact, no obvious rash. Head: Normocephalic, atraumatic. Eyes: PERRL, EOMI. Anicteric, vision grossly intact. Ears: No ear pain, no ear discharge, Hearing grossly intact. Nose: No nasal discharge. Mouth/Throat: Oral mucosa moist. No obvious lesions in oropharynx. Neck: Neck supple, non-tender, no cervical lymphadenopathy. Cardiovascular: Tachycardic rate and rhythm, no murmur, no JVD or carotid bruits. +S1/S2. Respiratory: Bilateral lungs are clear to auscultation, respirations unlabored, no crackles, no wheezing. No accessory muscle use. Gastrointestinal: Soft, nontender, non-distended, no palpable masses. No guarding or rebound tenderness. Peristalsis present. Extremities: Symmetrical, no significant deformities. No edema, no cyanosis, no clubbing. 2+ radial pulse bilaterally, 2+ posterior tibial pulse bilaterally. Neuro: No focal deficits observed. Conversant, moving all extremities. No overt cerebellar signs/incoordination. Psychiatric: Cooperative, appropriate affect. Discharge Plan Plan Patient Disposition: HOME (Self Care) Patient condition on transfer: Stable Care Plan Goals: - You have been started on a blood pressure pill. Take as below - Take your blood pressure everyday and write it down. Caryy this to your primary doctor - Take Pantoprazole daily. ? Avoid spicy foods, this can make you get stomach ulcers. - Avoid taking NSAIDS including elleve,motrin and ibuprofen - Follow up with Gastroenterology, Dr. Bermudez in 2 weeks to arrange outpatient colonoscopy - Follow up with your primary care physician within 1 week of discharge. If you do not have a primary care physician, please follow up with the [facility] Residents clinic ([phone]) ? If you experience any new, worsening or persistent symptoms either call your primary doctor, or dial 911 or present to the emergency department. Prescriptions/Referrals Prescriptions/Med Rec: New lisinopril 20 mg Tablet 20 mg PO QDAY 30 Days Qty: 30 1RF pantoprazole 40 mg tablet,delayed release (DR/EC) 40 mg PO QDAY 30 Days Qty: 30 1RF (DME) blood pressure monitor [Blood Pressure Kit] Kit See Rx Instructions .Route Qty: 1 0RF Rx Instructions: As directed (DME) blood pressure test kit-medium Kit See Rx Instructions .Route Qty: 1 0RF Rx Instructions: As directed Discontinued acetaminophen [Tylenol Extra Strength] 500 mg tablet 1,000 mg PO QID PRN (Reason: fever) Qty: 30 0RF cetirizine-pseudoephedrine [Zyrtec-D] 5-120 mg tablet extended release 12 hr 1 tab PO BID Qty: 10 0RF Referrals: Devante Fernandes MD [Primary Care Provider, Family Practice] Darron Bermudez MD [Physician, Gastroenterology] Patient/Caregiver Discharge Instructions Education Materials: Upper GI Endoscopy with Biopsy, Colonoscopy, Gastric Duodenal Ulcer Ch Print Language: [place] Stand Alone Forms: Loren Award Info., Patient Portal Info Letter Discharge Order Discharge Orders: Discharge (Routine); Ordered 01/02/25 Ordered By: Cl Orourke Quality Discharge Quality Measures none MD Attestestation MD Attestation I have discussed and was present for the essential components of the discharge history, physical examination, diagnosis, and discharge treatment plan with the resident. I agree with the patient's discharge care as documented by the res ident and amended herein by me. Jeff Peterson, . The patient understood all discharge instructions, all questions were answered satisfactorily. The patient was instructed to return to the Emergency Department is symptoms worsened or persisted. Patient presented for GI bleed, underwent endoscopy with Dr. Bermudez in 01/01 which discovered esophagitis, gastritis characterized by erosions and nonbleeding duodenal ulcer with a clean- based ulcer. Biopsies were taken and are pending, patient will need a peptic ulcer disease diet and will be sent home with a PPI. Patient will also need to follow-up with gastroenterology on an outpatient basis for colonoscopy at that time. Patient also advised to avoid NSAIDs, see resident note above for additional details. All questions answered satisfactorily, the patient was stable, afebrile, tolerating p.o. intake and ambulatory at time of discharge home. Although this document has been carefully reviewed, there may still be some phonetic and other typographical errors. These errors are purely grammatical due to imperfections in the software program and should not be construed in any way to compromise the substance of the patient's medical care during this visit.
== END 2025-01-02 12:25 | disposition home or self-care (01) | DRG 377 ==
LOC: SERX 15:27 → S3NX 01-01 05:58 → SERHOLD 01-01 06:11
PROVIDERS: Nurse Practitioner Family; Specialist; Admitting Provider Student in an Organized Health Care Education/Training Program; Emergency Provider Emergency Medicine; PCP Family Medicine; Visit Provider Student in an Organized Health Care Education/Training Program
PROC: 0DB48ZX Excision of Esophagogastric Junction, Via Natural or Artificial Opening Endoscopic, Diagnostic (ICD-10-PCS; CPT 43239; principal; 2025-01-01 12:00)
DX: K26.4 Chronic or unspecified duodenal ulcer with hemorrhage (principal); K21.01 Gastro-esophageal reflux disease with esophagitis, with bleeding; D62 Acute posthemorrhagic anemia; K29.71 Gastritis, unspecified, with bleeding; I10 Essential (primary) hypertension; E78.5 Hyperlipidemia, unspecified; Z90.710 Acquired absence of both cervix and uterus
CPT/HCPCS: 36415; 80053; 80061; 82728; 83036; 83540; 83550; 83735; 84100; 84443; 85025; 85610; 85730; 86850; 86900; 86901; 94762; 96374; 96375; 99284; A4649; J1200; J2250; J2470; J3010; J3490; A9270

== ENCOUNTER → 2025-02-04 | Outpatient (CLI) | payer MEDICARE, BC, SELFPAY ==
[2025-02-04 08:14] LABS: Collection Type, Urine Clean Catch
[2025-02-04 08:44] LABS: Glucose Estimated Average 88 mg/dL (80-131); Hemoglobin A1C 4.7 % Hgb (4.8-6.0)
[2025-02-04 08:48] LABS: Alanine Aminotransferase 34 U/L (10-49); Albumin, Serum 4.9 gm/dL (3.4-4.8); Albumin/Globulin Ratio 2.7 (1.2-2.2); Alkaline Phosphatase 76 U/L (46-116); Anion Gap 10 (7-16); Aspartate Amino Transferase 31 U/L (0-34); BUN/Creatinine Ratio 16 Ratio (12-20); Bilirubin,Total 0.6 mg/dL (0.3-1.2); Blood Urea Nitrogen 14 mg/dL (9-23); Calcium 9.6 mg/dL (8.3-10.6); Calcium (Corrected) 9.6 mg/dL (8.5-10.1); Carbon Dioxide 28.1 mMol/L (20.0-31.0); Cardiac Risk Estimate 4.1 RATIO (3.7-5.6); Chloride 106 mMol/L (98-107); Cholesterol 196 mg/dL (132-200); Creatinine (Component) 0.9 mg/dL (0.6-1.3); Globulin 1.8 gm/dL (2.3-3.5); Glucose 100 mg/dL (74-106); HDL Cholesterol 48 mg/dL (40-60); LDL Cholesterol,Calculated 107 mg/dL (0-130); Osmolality,Calculated 287 (275-295); Potassium 4.1 mMol/L (3.4-5.1); Sodium 144 mMol/L (136-145); Total Protein 6.7 gm/dL (5.7-8.2); Triglycerides 203 mg/dL (30-150); eGFR > 60 See Note
[2025-02-04 09:04] LABS: Vitamin B12 1219 pg/mL (211-911); Vitamin D 25 Hydroxy Total 20.1 ng/mL (7.3-40.2)
[2025-02-04 09:18] LABS: Bilirubin,Urine Negative (Negative); Blood,Urine Negative (Negative); Clarity,Urine Clear (Clear/Hazy); Color,Urine Lt-Yellow (Lt Yel-Yel); Glucose, Urine Negative (Negative); Ketones,Urine Negative (Negative); Leukocyte Esterase,Urine Negative (Negative); Nitrite,Urine Negative (Negative); PH,Urine 6.5 (5.0-7.0); Protein,Urine Negative (Neg - Trace); RBC,Urine < 1 /hpf (0-3); Specific Gravity,Urine 1.018 (1.001-1.035); Squamous Epithelial Cell,Urine 2 /hpf (0-5); Urobilinogen,Urine Negative mg/dL (0.0-1.0); WBC,Urine 1 /hpf (0-5)
== END | disposition home or self-care (01) ==
LOC: COPL 07:43
PROVIDERS: PCP Family Medicine; Referring Provider Family Medicine; Visit Provider Family Medicine
DX: Z00.00 Encounter for general adult medical examination without abnormal findings (principal); E78.2 Mixed hyperlipidemia; I10 Essential (primary) hypertension; E55.9 Vitamin D deficiency, unspecified; R53.83 Other fatigue
CPT/HCPCS: 36415; 80053; 80061; 81001; 82306; 82607; 83036